=== PATIENT | female | born 1960 | race Caucasian/White ===

== ENCOUNTER 2023-12-12 12:06 | Outpatient (CLI) | payer OTHER, SELFPAY ==
--- NOTE | 2023-12-12 12:37 | ECG_ITS ---
Test Date: 2023-12-12 12:46:38 Measurements Intervals [place] Rate: 70 P: 76 KS: 182 QRS: 64 QRSD: 93 T: 68 QT: 402 QTc: 436 Interpretive Statements SINUS RHYTHM No previous ECG available for comparison Electronically Signed On 12-13-2023 14:21:08 CDT by Michael Villatoro M.D.
[2023-12-12 12:42] LABS: Anion Gap 9 mmol/L (4-12); Blood Urea Nitrogen 11 mg/dL (7-17); Carbon Dioxide 31 mmol/L (22-30); Chloride 100 mmol/L (98-107); Estimated Glomerular Filt Rate > 60; Glucose 123 mg/dL (65-110); Potassium 3.6 mmol/L (3.4-5.0); Sodium 140 mmol/L (137-145)
== END 2023-12-12 12:07 | disposition home or self-care (01) ==
PROVIDERS: PCP Internal Medicine; Visit Provider Anesthesiology
DX: I10 Essential (primary) hypertension (principal); E78.5 Hyperlipidemia, unspecified
CPT/HCPCS: 36415; 80048; 93005

== ENCOUNTER 2023-12-26 05:50 | Day surgery (SDC) | payer OTHER, SELFPAY ==
[2023-12-11 13:27] VITALS: BMI 21.9
--- NOTE | 2023-12-25 11:32 | P.PNAN_ITS ---
Anes - Initial Pre Proc Eval Procedure: Operation Date: 12/26/23 08:00 Proposed Procedures p Bilateral Breast Implant Exchange - Gaudencio Bright MD Date/Time: 12/25/23 11:32 Surgeon: Gaudencio Bright MD Pre Op Diagnosis: Bilateral Breast Implant Rupture Patient Data Age: 63 Gender: F Height: 1.6 m Weight: 56 kg Allergies Allergy/AdvReac Type Severity Reaction Status Date / Time Sulfa (Sulfonamide Allergy Intermediate Hives Verified 12/26/23 06:39 Antibiotics) Home Medications Medication Instructions Recorded Confirmed Type alprazolam 0.25 mg tablet 0.25 mg PO DAILY PRN Anxiety 12/11/23 12/26/23 History levothyroxine 100 mcg tablet See Rx Instructions .Route .COMPLEX 12/11/23 12/26/23 History levothyroxine 112 mcg tablet See Rx Instructions .Route .COMPLEX 12/11/23 12/26/23 History olmesartan 40 1 tablet PO DAILY 12/11/23 12/26/23 History mg-hydrochlorothiazide 12.5 mg tablet ondansetron 4 mg disintegrating 4 mg translingual DAILY PRN GERD 12/11/23 12/26/23 History tablet pantoprazole 40 mg tablet,delayed 40 mg PO DAILY 12/11/23 12/26/23 History release rosuvastatin 5 mg tablet 5 mg PO DAILY 12/11/23 12/26/23 History Patient hx anesthesia problems: post op nausea/vomiting Family hx anesthesia problems: none Results Review: All pre-operative results and documents have been reviewed as part of the pre- operative evaluation. [facility] Past Medical History Medical History (Updated 12/25/23 @ 11:32 by Akshat Bella DO) GERD (gastroesophageal reflux disease) Hyperlipidemia Hypertension Hypothyroidism AMELIA (obstructive sleep apnea) Surgical History Surgical History (Updated 12/25/23 @ 11:32 by Akshat Bella DO) History of lumbar fusion Social History Social History Smoking packs per day: 0.5 Smoking cigarettes per day: 10.0 Years smoked: 10 Smoking pack-years: 5.00 Smoking status: Former smoker Tobacco type: cigarettes Second hand tobacco smoke exposure: No Smoking end date: 04/23/85 Alcohol intake: current Drinks per week: 2 Substance use: never Substance use type: does not use Living arrangements: with family Spiritual care concerns: No Anes - Eval Final PreProcedure Day of Procedure 12/25/23 11:32 Patient weight: normal Heart: regular rate and rhythm Lungs: clear to auscultation Airway: Mallampati scale class 1 Neurological: alert and oriented Last oral intake: >/= 8 hours ASA classification: III Emergent: no Anesthetic plan: proceed Anesthesia type and monitoring: general LMA and standard monitoring Results Review: All pre-operative results and documents have been reviewed as part of the pre- operative evaluation. Informed Consent: The patient's anesthetic plan and its attendant risks and benefits were discussed with the patient/family/POA. Questions were solicited and answers provided to the satisfaction of the patient/family/POA.
[2023-12-26 06:40] VITALS: BP 129/58; PULSE 66; RESP 16; TEMP 37.6; O2SAT 100
[2023-12-26] MEDS: SCOPOLAMINE 1 MG PATCH 1 PATCH TRANSDERM (06:45)
[2023-12-26] MEDS: LACTATED RINGERS 1,000 ML 30 ML IV CONT (06:47)
--- NOTE | 2023-12-26 06:55 | WPDHPUPDATE1 ---
History and Physical Update Update Date/Time: 12/26/23 06:55 History and Physical has been reviewed, including an updated exam of the patient. There are NO changes in the patient's condition. Risks, benefits, and alternatives have been discussed and questions answered. Patient agrees to proceed with procedure.
--- NOTE | 2023-12-26 06:55 | W.PM.PROC2 ---
Procedure Note - Detailed Date of Procedure 12/26/23 Pre-op Diagnosis Bilateral Breast Implant Rupture Post-op Diagnosis Same Procedure Performed Bilateral breast implant exchange Surgeon Gaudencio Brigth MD Anesthesia General Findings Previous implant: Textured No size markings on the implant Estimated width 12.6cm Water displacement 290cc New implants: Bilateral Ross Stinsonira SoftTouch 30cc Right - REF# [id number] SN [id number] Left - REF# [id number] SN [id number] Description of Procedure Preoperatively the risks, benefits, alternatives were discussed in extensive detail. I wanted to be very realistic about the risks involved as well as expectations. I was clear about how we could actually make her worse. Answered all questions to satisfaction. Voiced a clear understanding. Consent obtained. She was taken the operating room placed supine on the operating room table. Anesthesia provided by anesthesiology and prepped and draped in a standard sterile fashion. Surgical time-out was taken. 1% lidocaine and 0.25% Marcaine with epinephrine was used to provide a field block. Tegaderm nipple aguilar were placed. Fifteen blade used to excise the previous IMF scars. Dissection was continued down until the capsules were identified and excised a significant portion of the capsule which was sent to pathology. I then copiously irrigated with 3 L of saline solution on TUR tubing. Verified strict hemostasis. I then irrigated with Betadine containing solution. Using a no-touch technique and a Andrade funnel the implant was introduced into the pocket. This was closed with 2-0 PDS followed by 3-0 Monocryl and a running subcuticular 4-0 Monocryl followed by tissue glue. Dressings were placed. She was woken taken to the PACU without difficulty. All instrument sponge counts were correct at the end of the case. Estimated Blood Loss 50 Drains No Packing No Pathology Yes (Bilateral implant capsules) Complications No immediate complications Condition Stable Disposition PACU
[2023-12-26] MEDS: ceFAZolin SODIUM 2 GM/20 ML SW SYRINGE IV PUSH (07:32)
[2023-12-26] MEDS: NACL 0.9% IRRIG POUR BOTTLE 900 ML, GENTAMICIN SULFATE INJ 160 MG, ceFAZolin 2 GM, POVI... IRRIGATION (07:55)
[2023-12-26 08:52] VITALS: BP 106/80; PULSE 106; RESP 19; TEMP 36.3; O2SAT 100
[2023-12-26] MEDS: KETOROLAC 30 MG/ML VIAL (*BKC) 15 MG IV PUSH (09:01)
[2023-12-26 09:07] VITALS: BP 133/73; PULSE 86; RESP 20; O2SAT 100
[2023-12-26] MEDS: MEPERIDINE HCL INJ (*CRX) 100 MG/ML AMPUL 12.5 MG IV PUSH (09:11)
[2023-12-26 09:22] VITALS: BP 127/71; PULSE 79; RESP 15; O2SAT 99
[2023-12-26 09:25] VITALS: BP 121/64; BP 123/66; PULSE 75; PULSE 77; RESP 16; O2SAT 100; O2SAT 99
[2023-12-26 09:35] VITALS: BP 123/69; PULSE 72; RESP 18; O2SAT 99
[2023-12-26] MEDS: oxyCODONE HCL (*CRX) 5 MG TAB IR PO (09:40)
--- NOTE | 2023-12-26 10:43 | WPDANESPN ---
Anes - Prog Note Post-Op Date/Time: 12/26/23 10:43 Cardiovascular status: normal Respiratory status: normal Airway patency: baseline Mental status: baseline Post-Op hydration status: normal Vital Signs: Last Vital Signs Temp 36.3 C L 12/26/23 08:52 Pulse 72 12/26/23 09:35 Resp 18 12/26/23 09:35 BP 123/69 12/26/23 09:35 Pulse Ox 99 12/26/23 09:35 O2 Del Method Room Air 12/26/23 09:35 O2 Flow Rate 8 12/26/23 08:52 Pain Score (VAS): 2 I/O: Intake & Output 12/25/23 12/26/23 12/26/23 23:59 07:59 15:59 Intake Total 100 Balance 100 Post-procedural complaints: none Patient Feedback: Patient satisfied with anesthetic care. Other Findings: Patient vital signs back to baseline. Patient denies nausea and vomiting. Patient's pain under control. Patient OK for discharge.
== END 2023-12-26 09:57 | disposition home or self-care (01) ==
PROVIDERS: PCP Internal Medicine; Visit Provider Surgery Plastic and Reconstructive Surgery
PROC: (CPT 19342; principal; 2023-12-26 08:00)
DX: T85.49XA Other mechanical complication of breast prosthesis and implant, initial encounter (principal)
CPT/HCPCS: 19342

== ENCOUNTER 2023-12-26 08:44 | Outpatient (NON) | payer OTHER, SELFPAY | END 2023-12-26 08:45 | disposition home or self-care (01) | LOC: ANHLAB 12-27 08:45 | PROVIDERS: PCP Internal Medicine; Visit Provider Surgery Plastic and Reconstructive Surgery | DX: T85.43XA Leakage of breast prosthesis and implant, initial encounter (principal) | CPT/HCPCS: 88304 ==

== ENCOUNTER 2023-12-27 10:35 | Day surgery (SDC) | payer OTHER, SELFPAY ==
[2023-12-27 10:59] VITALS: BMI 22.1
--- NOTE | 2023-12-27 11:00 | PC.NURSE ---
Report to the Outpatient Waiting Room, entrance under the green pavilion located off [facility], at time _1200_ on date _[id number]_. Planned Procedure Time: _2pm_.? Time changes happen often and if your time is changed the preop area will call you the afternoon before. - You and your visitor will be asked to self-screen and do not enter if you have any COVID symptoms. Please call surgeon if you need to reschedule. - A mask is optional within the hospital at this time. - No food or drink starting now until time of surgery and no smoking Take only the following medications with a SIP of water on the morning of surgery: ____Already took morning medications. DO NOT STOP ANY OF YOUR OTHER PRESCRIPTION MEDICATIONS PRIOR TO SURGERY EXCEPT THE FOLLOWING Please no make-up, nail bermudian, hairspray, perfume, deodorant, or body powder the day of surgery.? No jewelry (including any body piercings) or valuables the day of surgery, leave them at home.? Please take a shower or bath the night before, or the morning of, surgery with an antibacterial soap.? Wear comfortable, loose fitting clothing.? - Jewelry must be removed prior to entering the operating room.? Rings and piercings that are not removed may be cut off. - The hospital will not accept responsibility for valuables.? - Please leave all valuables, including medications, at home the day of surgery. If you are going home after surgery, a licensed heavy truck driver must drive you home.? - NO public transportation without another adult if you receive anesthesia. - We recommend that an adult stay with you for 24 hours following discharge. - We also recommend that you do not drive, make important decision, drink alcoholic beverages, or take any drugs that were not prescribed by your health care provider for at least 24 hours after your discharge time. Follow any additional instructions given to you from your surgeon. Telephone instructions given to __Veronica__and asked if any additional questions and then verbalized understanding. Patient advised to call surgeon office or pre surgery nurse liaison [phone] if any additional questions.
[2023-12-27 13:13] VITALS: BP 131/54; PULSE 68; RESP 16; TEMP 36.3; O2SAT 100; BMI 23.1
[2023-12-27] MEDS: LACTATED RINGERS 1,000 ML 30 ML IV CONT ×2 (14:00→15:39)
--- NOTE | 2023-12-27 14:20 | PM.IMHP ---
H&P: HPI History of Present Illness Date/Time: 12/27/23 14:20 Chief Complaint: Right breast swelling Narrative: Yesterday underwent bilateral breast implant exchange. She did well overnight; however, woke up this AM with fullness right breast. Seen in the office and appears to have a hematoma. No f/c. No n/v. No SOB. No CP. No other complaints. Pain well controlled. Review of Systems Review of Systems: All systems reviewed & are unremarkable except as noted in HPI and below [facility] Past Medical History Medical History (Updated 12/27/23 @ 14:24 by Gaudencio Bright MD) GERD (gastroesophageal reflux disease) Hyperlipidemia Hypertension Hypothyroidism AMELIA (obstructive sleep apnea) Surgical History Surgical History (Updated 12/27/23 @ 14:24 by Gaudencio Bright MD) History of lumbar fusion Social History Social History Smoking packs per day: 0.5 Smoking cigarettes per day: 10.0 Years smoked: 10 Smoking pack-years: 5.00 Smoking status: Former smoker Tobacco type: cigarettes Second hand tobacco smoke exposure: No Smoking end date: 12/26/85 Alcohol intake: current Drinks per week: 2 Substance use: never Substance use type: does not use Living arrangements: with family Spiritual care concerns: No Meds Home Medications and Allergies Home Medications Medication Instructions Recorded Confirmed Type alprazolam 0.25 mg tablet 0.25 mg PO DAILY PRN Anxiety 12/11/23 12/27/23 History levothyroxine 100 mcg tablet See Rx Instructions .Route .COMPLEX 12/11/23 12/27/23 History levothyroxine 112 mcg tablet See Rx Instructions .Route .COMPLEX 12/11/23 12/27/23 History olmesartan 40 1 tablet PO DAILY 12/11/23 12/27/23 History mg-hydrochlorothiazide 12.5 mg tablet ondansetron 4 mg disintegrating 4 mg translingual DAILY PRN GERD 12/11/23 12/27/23 History tablet pantoprazole 40 mg tablet,delayed 40 mg PO DAILY 12/11/23 12/27/23 History release rosuvastatin 5 mg tablet 5 mg PO DAILY 12/11/23 12/27/23 History enoxaparin 40 mg/0.4 mL 40 mg subcut QPM 12/27/23 12/27/23 History subcutaneous syringe tramadol 50 mg tablet 50 mg PO Q6H PRN Pain 12/27/23 12/27/23 History Allergies Allergy/AdvReac Type Severity Reaction Status Date / Time Sulfa (Sulfonamide Allergy Intermediate Hives Verified 12/27/23 10:52 Antibiotics) Vital Signs Vital Signs - 24 hr 12/27/23 13:13 Temperature 36.3 C L Pulse Rate 68 Respiratory Rate 16 Blood Pressure 131/54 L Pulse Oximetry 100 Oxygen Delivery Room Air Exam Narrative: Alert & Oriented NOD Respiratory unlabored Left breast is healing well. No signs of infection. No hematoma. No seroma. Good color and capillary refill. Right breast enlarged / firm. Appears to be a hematoma. No calf tenderness. Negative Amalia's Assessment and Plan Assessment and plan (1) History of breast augmentation: Code(s): Z98.82 - Breast implant status Status: Acute Assessment and Plan: Appears to have right breast hematoma s/p bilateral breast implant exchange yesterday. Will proceed to OR for right breast washout possible implant exchange. She had a elevated Caprini pre-op and had started Lovenox. She is now going to hold and will monitor for DVT/ PE and proceed with regular ambulation understanding the risks. Risks, benefits, alternatives were discussed in extensive detail. I want to be very realistic about the risks involved as well as expectations. Reviewed consent in detail. Discussed aftercare and what to monitor for. Made sure I answered all questions answered to satisfaction and consent obtained. (2) Postoperative hematoma: Status: Acute Assessment and Plan: As above
--- NOTE | 2023-12-27 14:26 | WPDANESEPPF ---
Anes - Initial Pre Proc Eval Procedure: Operation Date: 12/27/23 14:00 Proposed Procedures p Right Breast Washout with Implant Exchange - Gaudencio Bright MD Date/Time: 12/27/23 14:26 Surgeon: Gaudencio Bright MD Pre Op Diagnosis: hematoma, s/p breast implant surgery Patient Data Age: 63 Gender: F Height: 1.6 m Weight: 59.3 kg Last Vital Signs Temp 36.3 C L 12/27/23 13:13 Pulse 68 12/27/23 13:13 Resp 16 12/27/23 13:13 BP 131/54 L 12/27/23 13:13 Pulse Ox 100 12/27/23 13:13 O2 Del Method Room Air 12/27/23 13:13 Allergies Allergy/AdvReac Type Severity Reaction Status Date / Time Sulfa (Sulfonamide Allergy Intermediate Hives Verified 12/27/23 10:52 Antibiotics) Home Medications Medication Instructions Recorded Confirmed Type alprazolam 0.25 mg tablet 0.25 mg PO DAILY PRN Anxiety 12/11/23 12/27/23 History levothyroxine 100 mcg tablet See Rx Instructions .Route .COMPLEX 12/11/23 12/27/23 History levothyroxine 112 mcg tablet See Rx Instructions .Route .COMPLEX 12/11/23 12/27/23 History olmesartan 40 1 tablet PO DAILY 12/11/23 12/27/23 History mg-hydrochlorothiazide 12.5 mg tablet ondansetron 4 mg disintegrating 4 mg translingual DAILY PRN GERD 12/11/23 12/27/23 History tablet pantoprazole 40 mg tablet,delayed 40 mg PO DAILY 12/11/23 12/27/23 History release rosuvastatin 5 mg tablet 5 mg PO DAILY 12/11/23 12/27/23 History enoxaparin 40 mg/0.4 mL 40 mg subcut QPM 12/27/23 12/27/23 History subcutaneous syringe tramadol 50 mg tablet 50 mg PO Q6H PRN Pain 12/27/23 12/27/23 History Patient hx anesthesia problems: post op nausea/vomiting Family hx anesthesia problems: none Results Review: All pre-operative results and documents have been reviewed as part of the pre-operative evaluation. [facility] Past Medical History Medical History GERD (gastroesophageal reflux disease) Hyperlipidemia Hypertension Hypothyroidism AMELIA (obstructive sleep apnea) Surgical History Surgical History History of lumbar fusion Social History Social History Smoking packs per day: 0.5 Smoking cigarettes per day: 10.0 Years smoked: 10 Smoking pack-years: 5.00 Smoking status: Former smoker Tobacco type: cigarettes Second hand tobacco smoke exposure: No Smoking end date: 12/26/85 Alcohol intake: current Drinks per week: 2 Substance use: never Substance use type: does not use Living arrangements: with family Spiritual care concerns: No Anes - Eval Final PreProcedure Day of Procedure 12/27/23 14:26 Patient weight: normal Heart: regular rate and rhythm Lungs: clear to auscultation Airway: Mallampati scale class II Neurological: alert and oriented Last oral intake: >/= 8 hours ASA classification: III Emergent: no Anesthetic plan: proceed Anesthesia type and monitoring: general LMA and standard monitoring Results Review: All pre-operative results and documents have been reviewed as part of the pre-operative evaluation. Informed Consent: The patient's anesthetic plan and its attendant risks and benefits were discussed with the patient/family/POA. Questions were solicited and answers provided to the satisfaction of the patient/family/POA.
--- NOTE | 2023-12-27 14:28 | WPDHPUPDATE1 ---
History and Physical Update Update Date/Time: 12/27/23 14:28 History and Physical has been reviewed, including an updated exam of the patient. There are NO changes in the patient's condition. Risks, benefits, and alternatives have been discussed and questions answered. Patient agrees to proceed with procedure.
--- NOTE | 2023-12-27 14:28 | W.PM.PROC2 ---
Procedure Note - Detailed Date of Procedure 12/27/23 Pre-op Diagnosis hematoma, s/p breast implant surgery Post-op Diagnosis Same Procedure Performed Right breast washout hematoma with right breast implant exchange Surgeon Gaudencio Bright MD Anesthesia General Findings Right breast: 150 cc hematoma Implant intact Replacement implant right breast: Ross Sandoval SoftTouch 300cc REF# [id number] Description of Procedure Preoperatively the risks, benefits, alternatives were discussed in extensive detail. I wanted to be very realistic about the risks involved as well as expectations. I was clear about how we could actually make her worse. Answered all questions to satisfaction. Voiced a clear understanding. Consent obtained. She was taken the operating room placed supine on the operating room table. Anesthesia provided by anesthesiology and prepped and draped in a standard sterile fashion. Surgical time-out was taken. 1% lidocaine and 0.25% Marcaine with epinephrine was used to provide a field block. Tegaderm nipple aguilar were placed. Fifteen blade used to excise the previous right IMF scar. Dissection was continued down until the implant was identified and removed.. I then copiously irrigated with 3 L of saline solution on TUR tubing. Verified strict hemostasis and monitored for no recurrence of bleeding. I then irrigated with Betadine containing solution. Using a no-touch technique and a Andrade funnel the implant was introduced into the pocket. This was closed with 2-0 PDS followed by 3-0 Monocryl and a running subcuticular 4-0 Monocryl followed by tissue glue. Dressings were placed. She was woken taken to the PACU without difficulty. All instrument sponge counts were correct at the end of the case. Estimated Blood Loss 10 Drains No Packing No Pathology None sent Complications No immediate complications Condition Stable Disposition PACU
[2023-12-27] MEDS: ceFAZolin 2 GM/D5W 50 ML 2 GM/50 ML BAG IVPB (14:45)
[2023-12-27] MEDS: TRANEXAMIC ACID 1,000MG/ISO100 1,000 MG/100 ML BAG 200 MG IVPB (14:54)
[2023-12-27] MEDS: NACL 0.9% IRRIG POUR BOTTLE 900 ML, GENTAMICIN SULFATE INJ 160 MG, ceFAZolin 2 GM, POVI... IRRIGATION (15:19)
[2023-12-27] MEDS: LIDO 1%/EPINEPHRINE 1:100,000 50 ML VIAL 30 ML INFILTRATE (15:21)
[2023-12-27 15:39] VITALS: BP 110/57; PULSE 95; RESP 20; TEMP 36.7; O2SAT 100
[2023-12-27 15:50] VITALS: BP 113/67; PULSE 68; RESP 20; O2SAT 99
[2023-12-27 16:05] VITALS: BP 121/63; PULSE 70; RESP 20; O2SAT 99
[2023-12-27] MEDS: MEPERIDINE HCL INJ (*CRX) 50 MG/ML AMPUL 25 MG IV PUSH (16:06)
[2023-12-27 16:22] VITALS: BP 122/53; PULSE 72
[2023-12-27 16:50] VITALS: BP 115/47; PULSE 69
[2023-12-27] MEDS: oxyCODONE HCL (*CRX) 5 MG TAB IR PO (16:51)
== END 2023-12-27 17:13 | disposition home or self-care (01) ==
PROVIDERS: PCP Internal Medicine; Visit Provider Surgery Plastic and Reconstructive Surgery
PROC: (CPT 19342; principal; 2023-12-27 14:00)
DX: L76.34 Postprocedural seroma of skin and subcutaneous tissue following other procedure (principal); I10 Essential (primary) hypertension; E78.5 Hyperlipidemia, unspecified; K21.9 Gastro-esophageal reflux disease without esophagitis; E03.9 Hypothyroidism, unspecified; G47.33 Obstructive sleep apnea (adult) (pediatric); Z79.891 Long term (current) use of opiate analgesic; Z98.890 Other specified postprocedural states; Z98.82 Breast implant status; Z98.1 Arthrodesis status; Z87.891 Personal history of nicotine dependence; Y83.8 Other surgical procedures as the cause of abnormal reaction of the patient, or of later complication, without mention of misadventure at the time of the procedure
CPT/HCPCS: 10140; 19325; 19328; A9270; J0690; J1100; J1580; J2175; J2250; J2405; J2704; J3010; J7120